=== PATIENT | female | born 1960 | race Caucasian/White ===

== ENCOUNTER 2020-02-14 07:32 | Day surgery (SDC) | payer OTHER ==
[2020-02-08 13:49] VITALS: BMI 45.6
[2020-02-14] MEDS ORDERED: LIDOCAINE HCL/PF 2% SDV 5ML VIAL ONE (07:52)
[2020-02-14] MEDS ORDERED: PROPOFOL 20 ML ONE ×3 (07:52)
[2020-02-14 09:11] VITALS: BP 121/65; PULSE 68; TEMP 98
== END 2020-02-14 09:12 | disposition home or self-care (01) ==
LOC: FASU-ENDO 07:32
PROVIDERS: ATTEND Internal Medicine Gastroenterology
PROC: 0DJD8ZZ Inspection of Lower Intestinal Tract, Via Natural or Artificial Opening Endoscopic (ICD-10-PCS; principal; 2020-02-14 08:13)
DX: Z12.11 Encounter for screening for malignant neoplasm of colon (principal)